=== PATIENT | male | born 2000 ===

== ENCOUNTER → 2020-07-12 | Day surgery (SDC) | payer OTHER ==
[~2020-07-12] MED LIST: VYVANSE10 MG PO; VYVANSE70 MG PO
[2020-07-12 11:24] LABS: BASOPHIL 0.9 % (0-2); EOSINOPHIL 2.8 % (0-5); HCT 41.5 % (42.0-52.0); HGB 13.9 g/dl (13.2-18.0); LYMPHOCYTE 37.2 % (15-48); MCH 28.3 pg (25.0-31.0); MCHC 33.5 g/dL (32.0-36.0); MCV 84.3 fL (78.0-100.0); MONOCYTE 10.8 % (0-12); MPV 10.5 fL (6.0-9.5); NEUTROPHIL 48.3 % (41-80); NRBC 0; PLT 209 K/uL (150-400); RBC 4.92 M/uL (4.70-6.00); RDW 13.4 % (11.5-14.0); WBC 4.4 K/uL (4.0-10.5)
== END | disposition home or self-care (01) ==
LOC: FAS 10:39
PROVIDERS: Oral & Maxillofacial Surgery
DX: D10.39 Benign neoplasm of other parts of mouth (principal); K02.63 Dental caries on smooth surface penetrating into pulp; K01.1 Impacted teeth; M54.2 Cervicalgia; R62.50 Unspecified lack of expected normal physiological development in childhood; F31.9 Bipolar disorder, unspecified; Z20.822 Contact with and (suspected) exposure to COVID-19
CPT/HCPCS: 41825; D7210; 36415; 85025; J1100; J1170; J2250; J2704; J3010; J7120